=== PATIENT | female | born 1945 | race Caucasian/White ===

== ENCOUNTER 2017-06-22 14:03 | Outpatient (CLI) | payer OTHER | END 2017-06-22 14:04 | LOC: CARD 14:03 | PROVIDERS: ATTEND Internal Medicine Cardiovascular Disease | DX: I25.10 Atherosclerotic heart disease of native coronary artery without angina pectoris (principal); N18.9 Chronic kidney disease, unspecified; E78.5 Hyperlipidemia, unspecified; I10 Essential (primary) hypertension; E11.9 Type 2 diabetes mellitus without complications | CPT/HCPCS: G0463 ==

== ENCOUNTER 2017-07-30 15:34 | Outpatient (CLI) | payer OTHER, MEDICAID | END 2017-07-30 15:35 | LOC: LABRHC 15:34 | PROVIDERS: ATTEND Family Medicine | DX: L98.9 Disorder of the skin and subcutaneous tissue, unspecified (principal) ==

== ENCOUNTER 2017-08-17 12:21 | Outpatient (CLI) | payer OTHER ==
--- NOTE | 2017-08-18 11:31 | HISTORY AND PHYSICAL REPORT ---
Dear Dr. Brooks: HISTORY OF PRESENT ILLNESS: I had the opportunity of seeing Christine Reed as an outpatient at [facility]. Christine is a delightful 71-year-old white female who presents with a recent onset over the past 3 or 4 months of back and right hip and leg pain. She tells me that she had a large thoracolumbar and lumbosacral fusion done about 9 years ago for radiculitis and now the pain is becoming recurrent. She says she does not have any symptoms. She denies symptoms on the left. She says the symptoms are right sided and worse with standing, bending, walking, and twisting and worse over the course of the day and radiating from the right hip to the right posterior lateral thigh. She had surgery done in the [facility]. She has a history of atrial fibrillation and has cardiac stents and is currently on Plavix. She tells me that she can stop the Plavix but it has not been stopped for her appointment today. PAST MEDICAL HISTORY: 1. History of cardiovascular disease. 2. Chronic pain. 3. Depression. 4. Diabetes, diet controlled. 5. Syncope. 6. Seizures. 7. Dementia. 8. Acute renal failure. 9. Crohn's disease. PAST SURGICAL HISTORY: 1. Appendectomy. 2. Splenectomy. 3. PCI with stent. 4. Cholecystectomy. 5. Large lumbar fusion with instrumentation possibly x2. 6. Posterior cervical decompression and fusion. 7. Pacemaker placement. CURRENT DAILY MEDICATIONS: 1. Plavix 75 mg daily. 2. Celebrex 100 mg b.i.d. 3. Coreg 6.25 mg b.i.d. 4. FiberCon 625 mg b.i.d. 5. Divalproex 250 mg b.i.d. 6. Tylenol 650 mg p.r.n. 7. Zofran 4 mg p.r.n. 8. Senna p.r.n. 9. Citalopram 20 mg daily. 10. Mirtazapine 7.5 mg at bedtime. 11. Tramadol 50 mg every 6 hours p.r.n. pain. ALLERGIES: 1. Codeine. 2. Sulfa. 3. Diazepam. 4. Hydrocodone. 5. Ibuprofen. 6. Morphine. 7. Imitrex. SOCIAL HISTORY: She is a former smoker. Unknown alcohol or recreational drug use. She resides at [facility]. FAMILY HISTORY: Family history includes coronary artery disease and diabetes. REVIEW OF SYSTEMS: She has had no complaints in the last month or 2. Pain is worsened with any activity or it can be abrupt shooting pain. Lying on the floor seems to improve her pain. PHYSICAL EXAMINATION: General: This is a delightful, well-nourished, well-developed white female appearing her stated age. Vital Signs: BP: 133/60, P: 74, R: 18, oxygen saturation is 94% on room air. HEENT: Pupils are equal, round, and reactive to light and accommodation. Extraocular movements intact. No facial droop. Neck: There is full range of motion of the cervical spine. No evidence of adenopathy. Thyroid is nontender, not enlarged. Carotids are without bruits. Chest: Clear to auscultation bilaterally. Normal chest excursion. Heart: Regular rate and rhythm without murmur. Abdomen: Benign. Normoactive bowel sounds. Motor/sensory: Intact in the upper and lower extremities. Moves all extremities freely. Back: There is evidence of a large lumbar fusion. Normal cervical, thoracic and lumbar curvatures. There are negative sacroiliac joint findings bilaterally. Negative piriformis bilaterally. No evidence of dermatomal weakness or numbness in the lower extremities. Bilateral negative femoral nerve stretch. Patellar tendons are 2+ and equal bilaterally. Extremities: There is an in situ pacemaker in the left shoulder. Markedly positive for a right straight raise. Strength is 5/5 and equal in her lower extremities. There is pain at the right sciatic notch. ASSESSMENT: Recurrent onset of left lower extremity radicular pain. PLAN: Hold Plavix. Follow up in my office for a right S1 transforaminal injection. Would consider CT imaging of the spine if patient is not improved after palliative transforaminal injection. Dr. Brooks, thank you again for allowing me to take part in the care of this nice lady. I appreciate the opportunity to take part in the care of your patients. cc: Dr. Nando SOLORZANO
== END 2017-08-17 12:22 ==
LOC: OUT 12:21
PROVIDERS: ATTEND Anesthesiology Pain Medicine
DX: M54.16 Radiculopathy, lumbar region (principal)
CPT/HCPCS: 99213; G0463

== ENCOUNTER 2017-08-24 13:25 | Outpatient (CLI) | payer OTHER | END 2017-08-24 13:26 | LOC: CARD 13:25 | PROVIDERS: ATTEND Internal Medicine Cardiovascular Disease | DX: I25.10 Atherosclerotic heart disease of native coronary artery without angina pectoris (principal); R55 Syncope and collapse; Z86.79 Personal history of other diseases of the circulatory system; Z95.0 Presence of cardiac pacemaker; Z86.73 Personal history of transient ischemic attack (TIA), and cerebral infarction without residual deficits; E11.9 Type 2 diabetes mellitus without complications; I10 Essential (primary) hypertension; E78.5 Hyperlipidemia, unspecified; N18.9 Chronic kidney disease, unspecified | CPT/HCPCS: G0463 ==

== ENCOUNTER 2017-10-05 12:21 | Outpatient (CLI) | payer MEDICARE, OTHER | END 2017-10-05 12:22 | LOC: CARD 12:21 | PROVIDERS: ATTEND Internal Medicine Cardiovascular Disease | DX: I25.10 Atherosclerotic heart disease of native coronary artery without angina pectoris (principal); E78.5 Hyperlipidemia, unspecified; I10 Essential (primary) hypertension; E11.9 Type 2 diabetes mellitus without complications; N18.9 Chronic kidney disease, unspecified; Z95.0 Presence of cardiac pacemaker | CPT/HCPCS: G0463 ==

== ENCOUNTER 2018-04-05 13:31 | Outpatient (CLI) | payer MEDICARE, OTHER | END 2018-04-05 13:33 | LOC: CARD 13:31 | PROVIDERS: ATTEND Internal Medicine Cardiovascular Disease | DX: I25.10 Atherosclerotic heart disease of native coronary artery without angina pectoris (principal); Z86.79 Personal history of other diseases of the circulatory system; Z95.0 Presence of cardiac pacemaker; E78.5 Hyperlipidemia, unspecified; N18.9 Chronic kidney disease, unspecified; I70.0 Atherosclerosis of aorta; I12.9 Hypertensive chronic kidney disease with stage 1 through stage 4 chronic kidney disease, or unspecified chronic kidney disease; E11.22 Type 2 diabetes mellitus with diabetic chronic kidney disease | CPT/HCPCS: G0463 ==

== ENCOUNTER 2018-06-23 16:25 | Emergency (ER) | payer MEDICARE, OTHER ==
[2018-06-23 17:23] VITALS: BP 122/64
[2018-06-23 17:28] LABS: eGFR (Non-African) 36
[2018-06-23] MEDS: ONDANSETRON HCL/PF 4 MG/ 2ML VIAL IVP ONE (17:45)
[2018-06-23] MEDS ORDERED: MAG HYDROX/ALUMINUM HYD/SIMETH 30 ML, Lidocaine 2%Visc 15ml 20 MG PO ONE ×2 (18:25)
[2018-06-23 18:32] LABS: BASO % 0.8 % (0.0-1.5); EOS % 6.8 % (0.0-6.8); LYMPH ABS # 2.63 thou/uL (0.60-4.00); MCH. 28.8 pg (28.0-34.0); MCV 99.3 fL (80.0-100.0); MONOCYTE ABS # 1.22 thou/uL (0.00-0.90)
[2018-06-23] MEDS: Lidocaine 2%Visc 15ml 20 MG/ML UDC ONE (18:37)
[2018-06-23] MEDS: MAGNESIUM, ALUMINUM HYDROXIDE 30 ML UDC PO ONE (18:37)
[2018-06-23] MEDS: Lidocaine 1% 5ml(IM or SUTURE)(PAIN CLINIC) IJ ONE (19:02)
--- NOTE | 2018-06-23 19:38 | Diagnostic Imaging Report ---
SUMMER DE LA TORRE (MANAGER OF APPLICATION DEVELOPMENT) - ER [facility] [id number] [id number] Report Submission Date: Jun 23, 2018 7:28:56 PM CDT Patient Study Name: KIKE CHACKO Date: Jun 23, 2018 6:58:30 PM CDT Modality Type: DX Gender: F Description: CHEST : 47 Institution: [facility] Physician: SUMMER DE LA TORRE (MANAGER OF APPLICATION DEVELOPMENT) - ER 2 views the chest Clinical history: Chest discomfort Findings: The heart size at upper limits of normal. The pulmonary vasculature is normal. No pleural effusion or pneumothorax. There is left lower lobe infiltrate. There is a small 5 mm nodular density in the right upper lobe, indeterminate. Left cardiac pacemaker is noted. Impression: 1. Left lower lobe infiltrate. 2. Small nodular density right upper lobe. Comparison to prior is recommended. Electronically signed on Jun 23, 2018 7:28:56 PM CDT by: Cyrus SOLORZANO
[2018-06-23] MEDS ORDERED: LEVOFLOXACIN 500 MG TABLET PO ONE (19:40)
--- NOTE | 2018-06-23 19:43 | ED Physician Documentation ---
General Adult - HISTORIAN Historian: patient - HPI Stated Complaint: N/B Chief Complaint: General Adult Further Comments: yes (72 year old female patient from [facility] with 2 week history of nausea and vomiting. Patient was admitted at [facility] last week. Patient unsure of her diagnosis. Report epigastric discomfort, c/o "boil" on her chest.) - ROS CONST: recent illness ([facility] admission) EYES/ENT: none CVS/RESP: none GI/: vomiting, nausea. denies: diarrhea MS/SKIN/LYMPH: none - PAST HX Past History: denies: none, AMI, angina, asthma, COPD, A-Fib, CHF, hypertension, kidney stones, renal disease, other Other History: other (HTN, anemia, HLD, insomnia, Afib, GERD, NIDDM) Allergies/Adverse Reactions: Allergies Allergy/AdvReac Type Severity Reaction Status Date / Time codeine Allergy Unknown Verified 06/23/18 17:03 diazepam Allergy Unknown Verified 06/23/18 17:03 hydrocodone Allergy Unknown Verified 06/23/18 17:03 morphine Allergy Unknown Verified 06/23/18 17:03 sulfacetamide Allergy Unknown Verified 06/23/18 17:03 sumatriptan Allergy Unknown Verified 06/23/18 17:03 ibuprofen Allergy Verified 06/23/18 17:03 Home Medications: Ambulatory Orders Medication Instructions Recorded Atorvastatin Calcium 1 tab PO HS 06/23/18 Carvedilol [Coreg] 1 tab PO BID 06/23/18 Citalopram Hydrobromide [Celexa] 1 tab PO DAILY 06/23/18 Ferrous Sulfate [Iron] 1 tab PO BID 06/23/18 Losartan Potassium [Cozaar] 1 tab PO DAILY 06/23/18 Melatonin 1 tab PO HS 06/23/18 Mirtazapine [Remeron] 7.5 mg PO HS 06/23/18 Pantoprazole Sodium [Protonix] 1 tab PO BID 06/23/18 Rivaroxaban [Xarelto] 1 tab PO DAILY 06/23/18 Sucralfate [Carafate] 1 tab PO BID 06/23/18 Topiramate [Topamax] 1 tab PO HS 06/23/18 - SOCIAL HX Smoking History: non-smoker - FAMILY HX Family History: No - VITAL SIGNS Vital Signs: Vital Signs Temp Pulse Resp BP Pulse Ox 87 16 122/64 92 06/23/18 16:25 06/23/18 16:25 06/23/18 16:25 06/23/18 16:25 - REVIEWED ASSESSMENTS Nursing Assessment Reviewed: Yes Vitals Reviewed: Yes Procedures Site: epigastric area Blade Size: 11 I & D Procedure: Chlorhexidine Progress: Wound cleaned with chlorhexidine, LIdocaine 1% injected in a wheel; 1 cm incision with #11 blade; moderate amount of purulent drainage from wound; culture obtained. Wound probed - depth 2 cm; packed with gauze and dressing applied by nursing. Progress - Progress Progress: Chest xray with LL infiltrate on chest xay; patient will need repeat chest after treatment for further evaluation of right upper lobe nodule. No prior xrays for comparison ED Results Lab/Radiology - Lab Results Lab Results: Lab Results 06/23/18 06/23/18 06/23/18 Unknown 18:45 16:44 WBC Comment 12.18 thou/uL H thou/uL (4.00-12.00) RBC 3.20 mil/uL L mil/uL (3.90-5.20) Hemoglobin (Send Out) 9.2 g/dL L g/dL (11.5-16.0) Hct (Send Out) 31.8 % L % (34.5-46.5) MCV (Send Out) 99.3 fL fL (80.0-100.0) MCH 28.8 pg pg (28.0-34.0) MCHC (Send Out) 29.0 g/dL L g/dL (30.0-36.0) RDW Coeff of Adolfo 18.5 % H % (11.3-14.7) Plt Count 543 thou/uL H thou/uL (130-400) Absolute Lymphs (auto) 2.63 thou/uL thou/uL (0.60-4.00) Absolute Monos (auto) 1.22 thou/uL H thou/uL (0.00-0.90) Absolute Basos (auto) 0.10 thou/uL thou/uL (0.00-0.50) CBC Comment Neutrophils % 60.7 % % (39.0-79.0) Absolute Neutrophils 7.39 thou/uL thou/uL (1.50-7.70) Lymphocytes 21.6 % % (16.0-50.0) Monocytes 10.0 % % (0.0-11.0) Absolute Eosinophils 0.83 thou/uL H thou/uL (0.00-0.60) Basophilia % 0.8 % % (0.0-1.5) Eosinophil Count 6.8 % % (0.0-6.8) Sodium 135 mmol/L L mmol/L (136-145) Potassium 4.1 mmol/L mmol/L (3.5-5.1) Chloride 104 mmol/L mmol/L (98-107) Carbon Dioxide 26 mmol/L mmol/L (22-30) BUN 17 mg/dL mg/dL (7-17) Creatinine 1.50 mg/dL H mg/dL (0.52-1.04) Estimated Creat Clear 56 Est GFR ( Amer) 44 L (60 - ) Est GFR (Non-Af Amer) 36 L (60 - ) Glucose 91 mg/dL mg/dL (74-106) Calcium 8.0 mg/dL L mg/dL (8.4-10.2) Total Bilirubin < 0.1 mg/dL L mg/dL (0.2-1.3) AST 12 U/L L U/L (15-46) ALT 20 U/L U/L (13-69) Alkaline Phosphatase 93 U/L U/L (38-126) Troponin I < 0.03 ng/mL L ng/mL (0.03-0.06) Total Protein 6.4 g/dL g/dL (6.3-8.2) Albumin 3.1 g/dL L g/dL (3.5-5.0) - Radiology Radiology Impressions: 2 views the chest Clinical history: Chest discomfort Findings: The heart size at upper limits of normal. The pulmonary vasculature is normal. No pleural effusion or pneumothorax. There is left lower lobe infiltrate. There is a small 5 mm nodular density in the right upper lobe, indeterminate. Left cardiac pacemaker is noted. Impression: 1. Left lower lobe infiltrate. 2. Small nodular density right upper lobe. Comparison to prior is recommended. Electronically signed on Jun 23, 2018 7:28:56 PM CDT by: Cyrus Cheng - Orders Orders: ED Orders Category Date Time Status Place IV Lock 1T Care 06/23/18 16:44 Active CHEST 2VIEW [RAD] Stat Exams 06/23/18 18:34 Completed CBC REF Stat Lab 06/23/18 Completed CMP Stat Lab 06/23/18 16:44 Completed TROPONIN I (cTnI) Stat Lab 06/23/18 18:45 Completed UA W/MICRO IF INDICATED Stat Lab 06/23/18 16:44 Ordered Levofloxacin [Levaquin] Med 06/23/18 19:40 Once 500 mg PO NOW ONE Lidocaine 1% 5ml(IM or SUTURE) [Xylocaine] Med 06/23/18 18:35 Discontinued 50 mg IJ NOW ONE Lidocaine 2%Visc 15ml [Xylocaine] Med 06/23/18 18:29 Discontinued 300 mg .ROUTE .STK-MED ONE Mag Hydrox/Aluminum Hyd/Simeth [Mylanta] 30 ml Med 06/23/18 18:25 Ordered Lidocaine 2%Visc 15ml [Xylocaine] 20 mg PO NOW Magnesium, Aluminum Hydroxide [Maalox] Med 06/23/18 18:29 Discontinued 30 ml PO .STK-MED ONE Ondansetron HCl/Pf [Zofran 4 mg/2 ml] Med 06/23/18 17:22 Discontinued 4 mg IVP NOW ONE General Adult Physical Exam - PHYSICAL EXAM GENERAL APPEARANCE: mild distress EENT: eye inspection normal, FROILAN RESPIRATORY: no resp distress, chest non-tender, breath sounds normal CVS: heart sounds normal, equal pulses, no murmur, no gallop, PMI nml, no JVD, no friction rub, irregularly irregular rhy ABDOMEN: soft, no organomegaly, normal bowel sounds, no abdominal bruit, no distension SKIN: warm/dry, normal color, other (abscess - epigastric area; 2 cm raised, erythema area) EXTREMITIES: non-tender, normal range of motion (at her baseline), no evidence of injury, no edema NEURO: oriented X3, motor nml, sensation nml, mood/affect nml Discharge Clincal Impression: assisted pneumonia, Abscess of chest wall Referrals: Nando Brooks MD [Primary Care Provider] - 2 Days Additional Instructions: To remove your dressing, gently pull it off. Remove the packing on Wednesday. Clean the wound twice a day with hibiclens and rinse with water clean away any scabbed area Cover with non-adherent dressing If you have pain, take simple pain relief medication such as Tylenol or ibuprofen. If bandages or dressings get wet, they will need to be changed. Start Levaquin 250mg daily x 6 day starting tomorrow. Follow up with PCP on Wednesday Repeat chest xray after levaquin completed. Condition: Stable Disposition: 01 HOME, SELF-CARE Decision to Admit: NO Decision Time: 19:41
[2018-06-24 06:08] LABS: APPEARANCE,URINE CLEAR (CLEAR); COLOR,URINE YELLOW (YELLOW); OCCULT BLOOD,URINE NEGATIVE (NEGATIVE); UROBILINOGEN URINE 0.2 Eu (0.2-1.0)
== END 2018-06-23 20:50 | disposition home or self-care (01) ==
LOC: ED 16:25
DX: J18.9 Pneumonia, unspecified organism (principal); L02.213 Cutaneous abscess of chest wall
CPT/HCPCS: 51701; 71046; 80053; 84484; 85025; A9270; J2405; 10060; 81002; 87070; 96372; 96374; 99284; S1016